=== PATIENT | female | born 1955 | race Caucasian/White ===

== ENCOUNTER → 2016-09-26 | Outpatient (CLI) | payer OTHER | LOC: FIMAGING 17:02 | PROVIDERS: ATTEND Orthopaedic Surgery | DX: M25.562 Pain in left knee (principal); Z96.652 Presence of left artificial knee joint ==

== ENCOUNTER → 2016-09-28 | Outpatient (CLI) | payer OTHER | LOC: FIMAGING 15:36 | PROVIDERS: ATTEND Radiology Diagnostic Radiology | DX: M25.462 Effusion, left knee (principal) ==

== ENCOUNTER 2016-09-29 07:41 | Day surgery (SDC) | payer OTHER ==
[2016-09-29] MEDS ORDERED: ONDANSETRON 4 MG/2 ML VIAL ONE (08:21)
[2016-09-29] MEDS ORDERED: FLUMAZENIL 0.5 MG/5 ML MDV IVP ONE (08:21)
[2016-09-29] MEDS ORDERED: NALOXONE HCL 0.4 MG/ML INJ ONE (08:22)
[2016-09-29] MEDS ORDERED: MIDAZOLAM 2 MG/2 ML VIAL ONE (08:22)
[2016-09-29] MEDS ORDERED: fentaNYL 100 MCG/2 ML INJ ONE (08:22)
[2016-09-29] MEDS ORDERED: ALTEPLASE 2 MG VIAL ONE (09:40)
[2016-09-29] MEDS ORDERED: IOPAMIDOL (ISOVUE-300) 100 ML BTL IV ONE (09:52)
[2016-09-29] MEDS ORDERED: NITROGLYCERIN/D5W 50 MG/250 ML BOTTLE IV ONE (09:52)
[2016-09-29] MEDS ORDERED: HEPARIN 10,000 UNIT/10 ML MDV ONE (09:53)
[2016-09-29] MEDS ORDERED: ALTEPLASE 2 MG VIAL IVP ONE (10:00)
[2016-09-29] MEDS ORDERED: PROTAMINE SULFATE 50 MG/5 ML VIAL IVP ONE (10:40)
[2016-09-29] MEDS ORDERED: NS 1,000 ML IV SCH (11:45)
== END 2016-09-29 14:39 | disposition home or self-care (01) ==
LOC: FIMAGING 07:41
PROVIDERS: ATTEND Orthopaedic Surgery
PROC: 0S9D3ZZ Drainage of Left Knee Joint, Percutaneous Approach (ICD-10-PCS; principal; 2016-09-29)
PROC: 04LY3DZ Occlusion of Lower Artery with Intraluminal Device, Percutaneous Approach (ICD-10-PCS; principal; 2016-09-29)
DX: M25.062 Hemarthrosis, left knee (principal); Z96.652 Presence of left artificial knee joint
CPT/HCPCS: 20610; 37242; 75710; 75989; 99152; 99153; C1769; C1894; C1760; J0696; J1644; J2250; J2310; J2405; J2720; J2997; J3010; Q9967

== ENCOUNTER → 2017-01-31 | Outpatient (CLI) | payer OTHER | LOC: BMCIMAGING 15:02 | PROVIDERS: ATTEND Internal Medicine | DX: Z12.31 Encounter for screening mammogram for malignant neoplasm of breast (principal); Z13.820 Encounter for screening for osteoporosis; M85.80 Other specified disorders of bone density and structure, unspecified site | CPT/HCPCS: G0202 ==

== ENCOUNTER → 2018-02-19 | Outpatient (CLI) | payer OTHER | LOC: BMCIMAGING 13:41 | PROVIDERS: ATTEND Internal Medicine | DX: Z12.31 Encounter for screening mammogram for malignant neoplasm of breast (principal) ==